=== PATIENT | female | born 2005 | race Caucasian/White ===

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

== ENCOUNTER 2024-01-22 16:45 | Outpatient (REF) | payer MEDICAID, SELFPAY ==
[2024-01-24 14:37] LABS: Chlamydia Result Negative (Negative); GC Result Negative (Negative)
== END 2024-01-22 16:46 | disposition home or self-care (01) ==
LOC: NCHCN 16:45
PROVIDERS: PCP Family Medicine; Visit Provider Family Medicine
DX: R30.0 Dysuria (principal)
CPT/HCPCS: 87077; 87491; 87591; 87086

== ENCOUNTER 2024-02-21 18:32 | Outpatient (REF) | payer MEDICAID, SELFPAY | END 2024-02-21 18:33 | disposition home or self-care (01) | LOC: NCHCN 18:32 | PROVIDERS: PCP Family Medicine; Visit Provider Physician Assistant | DX: J02.9 Acute pharyngitis, unspecified (principal) | CPT/HCPCS: 87070 ==